=== PATIENT | male | born 1950 | race Hispanic/Latino ===

== ENCOUNTER 2020-08-23 05:41 | Emergency (ER) | payer MEDICARE ==
[2020-08-23 06:56] LABS: Alanine Aminotransferase 14 units/L (7-56); BUN/Creatinine Ratio 17; Blood Urea Nitrogen 19 mg/dL (9-20); Calcium 9.3 mg/dL (8.4-10.2); Hemolysis Index 6
[2020-08-23 07:02] LABS: Basophils % (Auto) 0.7 % (0.0-1.8); Eosinophils # (Auto) 0.4 K/mm3 (0.0-0.4); Eosinophils % (Auto) 8.3 % (0.0-4.3); Hemoglobin 15.7 gm/dl (11.8-15.2); Lymphocytes # (Auto) 0.9 K/mm3 (1.2-5.4); Lymphocytes % (Auto) 18.5 % (13.4-35.0); Mean Corpuscular HGB Conc 35 % (32-34); Mean Corpuscular Volume 95 fl (84-94); Monocytes # (Auto) 0.4 K/mm3 (0.0-0.8); Monocytes % (Auto) 8.8 % (0.0-7.3); Platelet Count 143 K/mm3 (140-440); Red Blood Count 4.74 M/mm3 (3.65-5.03); Red Cell Distribution Width 13.3 % (13.2-15.2)
[2020-08-23] MEDS ORDERED: KETOROLAC 30 MG/1 ML INJ IV ONE (08:30)
[2020-08-23] MEDS ORDERED: ONDANSETRON 4 MG/2 ML INJ IV ONE (08:30)
--- NOTE | 2020-08-23 09:20 | Cat Scan Report ---
CT abdomen pelvis wo con INDICATION: Left flank pain. COMPARISON: None TECHNIQUE: Abdominal and pelvic CT exam performed. All CT scans at this location are performed using CT dose reduction for ALARA by means of automated exposure control. FINDINGS: CT ABDOMEN and PELVIS: Lung Bases: No significant abnormality. Liver: No significant abnormality. Biliary: Gallbladder is surgically absent. Spleen: No significant abnormality. Pancreas: No significant abnormality. Adrenals: No significant abnormality. Kidneys: 5 mm mid left ureteral stone with mild hydroureteronephrosis. Associated periureteral strand ing There are a few bilateral 2 to 3 mm nonobstructing bilateral renal stones. Left lower pole hypoat tenuating lesion most consistent with a cyst. Lymphatics: No lymphadenopathy. Vasculature: Infrarenal abdominal aortic aneurysm measuring 4.3 cm on image 91 of series 2 right comm on iliac artery measures 1.8 cm Bowel/Peritoneum: No significant abnormality. Appendix is nonvisualized. However, no inflammatory ch anges in the right lower quadrant to suggest appendicitis. Pelvis: No significant abnormality. Osseous Structures: No aggressive osseous lesion. Additional Findings: None IMPRESSION: 1. 5 mm mid left ureteral stone with mild hydroureteronephrosis. There are other bilateral small nono bstructing renal stones. 2. Infrarenal abdominal aortic aneurysm measuring 4.3 cm. If not already done so previously, vascular surgical consultation is recommended and yearly follow up is recommended. Signer Name: Dangelo Toro MD Signed: 08/23/2020 9:15 AM Workstation Name: [id number]
[2020-08-23 09:36] LABS: Bilirubin,Urine NEG (Negative); Blood,Urine LG (Negative); Color,Urine Yellow (Yellow)
--- NOTE | 2020-08-23 09:37 | Emergency Department Report ---
ED Abdominal Pain HPI - General Chief Complaint: Abdominal Pain Stated Complaint: LT SIDE PAIN, SOB Time Seen by Provider: 08/23/20 08:30 Source: patient Mode of arrival: Ambulatory Limitations: No Limitations - History of Present Illness Initial Comments: Patient is a 70-year-old male with no significant past medical history for his complaint today who is complaining of left flank pain. States it started approximately 3 AM. Patient is having decreased pain at this time states the pain was 8 out of 10 in severity. It dropped down to a 2 out of 10. There is no nausea vomiting fevers chills cough cold congestion or diarrhea. Patient states he is not had this pain before. Severity scale (0 -10): 0 - Related Data Previous Rx's Medication Instructions Recorded Last Taken Type Ciprofloxacin HCl [Ciprofloxacin 500 mg PO Q12HR #14 tab 08/23/20 Unknown Rx TAB] Tamsulosin [Flomax] 0.4 mg PO QDAY #7 cap 08/23/20 Unknown Rx traMADoL [Ultram] 50 mg PO Q6HR PRN #12 tablet 08/23/20 Unknown Rx Allergies Allergy/AdvReac Type Severity Reaction Status Date / Time No Known Allergies Allergy Unverified 08/23/20 05:56 ED Review of Systems ROS: Stated complaint: LT SIDE PAIN, SOB Other details as noted in HPI Comment: All other systems reviewed and negative ED Past Medical Hx - Past Medical History Previous Medical History?: Yes Hx Hypertension: Yes Hx Heart Attack/AMI: Yes Additional medical history: High Cholesterol - Surgical History Past Surgical History?: Yes Hx Coronary Stent: Yes (3) Additional Surgical History: 2 feet intestine removed - Social History Smoking Status: Current Every Day Smoker Substance Use Type: None - Medications Home Medications: Home Medications Medication Instructions Recorded Confirmed Last Taken Type Ciprofloxacin HCl [Ciprofloxacin 500 mg PO Q12HR #14 tab 08/23/20 Unknown Rx TAB] Tamsulosin [Flomax] 0.4 mg PO QDAY #7 cap 08/23/20 Unknown Rx traMADoL [Ultram] 50 mg PO Q6HR PRN #12 tablet 08/23/20 Unknown Rx ED Physical Exam - General Limitations: No Limitations General appearance: alert, in no apparent distress - Head Head exam: Present: atraumatic, normocephalic - Eye Eye exam: Present: normal appearance - ENT ENT exam: Present: mucous membranes moist - Neck Neck exam: Present: normal inspection - Respiratory Respiratory exam: Present: normal lung sounds bilaterally. Absent: respiratory distress, wheezes, rales, rhonchi - Cardiovascular Cardiovascular Exam: Present: regular rate, normal rhythm, normal heart sounds. Absent: systolic murmur, diastolic murmur, rubs, gallop - GI/Abdominal GI/Abdominal exam: Present: soft, normal bowel sounds. Absent: distended, tenderness, guarding, rebound - Rectal Rectal exam: Present: deferred - Extremities Exam Extremities exam: Present: normal inspection - Back Exam Back exam: Present: normal inspection - Neurological Exam Neurological exam: Present: alert, oriented X3 - Psychiatric Psychiatric exam: Present: normal affect, normal mood - Skin Skin exam: Present: warm, dry, intact, normal color. Absent: rash ED Course Vital Signs 08/23/20 05:48 Temperature 97.4 F L Pulse Rate 60 Respiratory 18 Rate Blood Pressure 143/74 O2 Sat by Pulse 87 Oximetry ED Medical Decision Making - Lab Data Result diagrams: 08/23/20 06:06 08/23/20 06:06 Ordering Physician: MAHOGANY TIJERINA MD Date of Service: 08/23/20 Procedure(s): CT head/brain wo con Accession Number(s): [id number] cc: MAHOGANY TIJERINA MD CT head/brain wo con INDICATION: Stroke protocol. TECHNIQUE: Routine CT head. All CT scans at this location are performed using CT dose reduction for ALARA by means of automated exposure control. COMPARISON: None. FINDINGS: Please note that image quality is significantly degraded by motion. Intracranial: No loss of arango-white matter differentiation. There is a small parenchymal hemorrhage along the right postcentral gyrus in the area that could affect the left leg. There is no hyperdensity of the superior sagittal sinus to suggest dural venous sinus thrombosis or in the sulci to suggest cortical vein thrombosis. No extra axial collection.. No hydrocephalus. No herniation. Sinuses: Paranasal sinuses and mastoid air cells are essentially clear. Orbits: Globes are intact. Calvarium: No acute fracture. IMPRESSION: 1. Small parenchymal hemorrhage in the right postcentral gyrus. This is an atypical location for parenchymal hemorrhages. Consider MRI for further evaluation. I informed Dr. Tijerina who is taking care of this patient via telephone at [phone]. The patient was not known to be hypertensive and didnt have trauma history Signer Name: Dangelo Toro MD Signed: 08/23/2020 8:41 AM Workstation Name: [id number] - Medical Decision Making Patient is a 70-year-old male who is presenting with some left flank pain which has decreased since his arrival. Patient refused pain meds at this time. Patient does have evidence of a 5mm stone which is near the bladder. Patient to be discharged home with Cipro and Flomax. Critical care attestation.: If time is entered above; I have spent that time in minutes in the direct care of this critically ill patient, excluding procedure time. ED Disposition Clinical Impression: Hydronephrosis Qualifiers: Hydronephrosis type: with ureteral calculous obstruction Qualified Code(s): N13.2 - Hydronephrosis with renal and ureteral calculous obstruction Disposition: TO HOME OR SELFCARE Is pt being admited?: No Does the pt Need Aspirin: No Condition: Stable Instructions: Kidney Stones (ED), How to Strain Your Urine (ED) Referrals: SERA FARRIS MD [Staff Physician] - 3-5 Days Time of Disposition: 09:36
[2020-08-23 09:47] LABS: RBC,Urine > 182.0 /HPF (0.0-6.0)
[2020-08-23 10:02] VITALS: BP 144/82
== END 2020-08-23 09:45 | disposition home or self-care (01) ==
LOC: EDBD → ED 05:41
DX: N13.2 Hydronephrosis with renal and ureteral calculous obstruction (principal); I10 Essential (primary) hypertension; I25.2 Old myocardial infarction; E78.00 Pure hypercholesterolemia, unspecified; F17.200 Nicotine dependence, unspecified, uncomplicated; Z95.818 Presence of other cardiac implants and grafts
CPT/HCPCS: 36415; 74176; 80053; 81001; 85025; 87086